=== PATIENT | female | born 1985 | race Caucasian/White ===

== ENCOUNTER 2024-03-31 17:56 | Outpatient (CLI) | payer BC, SELFPAY ==
[2024-04-02 21:44] LABS: HPV Source Cervical; HPV, High Risk by TMA Not Detected
== END 2024-03-31 17:57 | disposition home or self-care (01) ==
PROVIDERS: PCP Nurse Practitioner Family; Visit Provider Nurse Practitioner Family
DX: D50.9 Iron deficiency anemia, unspecified (principal); F41.9 Anxiety disorder, unspecified; T14.8XXA Other injury of unspecified body region, initial encounter; Z12.4 Encounter for screening for malignant neoplasm of cervix
CPT/HCPCS: 85025; 87624; 87625; 88141; 88142

== ENCOUNTER 2024-06-08 13:48 | Outpatient (CLI) | payer BC, SELFPAY ==
--- NOTE | 2024-06-08 14:00 | CRLHL7_ITS ---
For Patients: As a result of the Century Cures Act, medical imaging exams and procedure reports are released immediately into your electronic medical record. You may view this report before your referring provider. If you have questions, please contact your health care provider. Indication: Iron-deficiency anemia. Technique: Grayscale ultrasound of the pelvis was performed. Limited color Doppler was utilized. Transabdominal and transvaginal technique was performed. Comparison: None. Findings: Uterus: The uterus is normal in size, shape and echotexture. It measures 8.4 x 5.1 x 6.1 cm. No intramural masses identified. Endometrium: The endometrial stripe is homogeneous and measures 14 mm in thickness. Right ovary: The right ovary has a normal appearance containing a few tiny follicles. It measures 3.9 x 1.1 x 1.4 cm. Color Doppler blood flow to the right ovary is documented. Left ovary: The left ovary has a normal appearance containing a few tiny follicles. It measures 3.9 x 1.2 x 1.6 cm. Color Doppler blood flow to the left ovary is documented. Cul-de-sac: There is trace free fluid in the posterior cul-de-sac. Impression: No acute abnormality. Dictated by Rupert Avendaño MD @ 06/09/2024 9:57:57 AM (Electronically Signed)
--- NOTE | 2024-06-08 15:00 | CRLHL7_ITS ---
For Patients: As a result of the Century Cures Act, medical imaging exams and procedure reports are released immediately into your electronic medical record. You may view this report before your referring provider. If you have questions, please contact your health care provider. BILATERAL SCREENING MAMMOGRAM WITH COMPUTER-AIDED DETECTION AND TOMOSYNTHESIS TECHNIQUE: CC and MLO views were obtained. These mammographic images have been obtained using full-field digital technique. These mammographic images were interpreted with the benefit of computer-aided detection. Breast Tomosynthesis was used in this interpretation. COMPARISON FILM: Baseline. FINDINGS: The breasts are heterogeneously dense, which may obscure small masses IMPRESSION: There is no radiographic evidence for malignancy. ASSESSMENT: BI-RADS Category 1: Negative RECOMMENDATION: Routine screening mammogram in 1 year. A lay language report of this examination will be provided to the patient. Ramesh Pak M.D. Diagnostic Radiologist [email or web address] / bM/Dictated by: Ramesh Pak MD @ 06/11/2024 9:44:00 AM (Electronically Signed)
== END 2024-06-08 13:49 | disposition home or self-care (01) ==
LOC: US 13:48
PROVIDERS: PCP Nurse Practitioner Family; Visit Provider Nurse Practitioner Family
DX: Z12.31 Encounter for screening mammogram for malignant neoplasm of breast (principal); R92.333 Mammographic heterogeneous density, bilateral breasts; Z80.3 Family history of malignant neoplasm of breast; D50.9 Iron deficiency anemia, unspecified; N92.0 Excessive and frequent menstruation with regular cycle
CPT/HCPCS: 76830; 76856; 77063; 77067

== ENCOUNTER 2024-06-23 18:38 | Outpatient (CLI) | payer BC, SELFPAY | END 2024-06-23 18:39 | disposition home or self-care (01) | LOC: NFLDREF 18:39 | PROVIDERS: PCP Nurse Practitioner Family; Visit Provider Registered Nurse | DX: N92.0 Excessive and frequent menstruation with regular cycle (principal) | CPT/HCPCS: 84443 ==

== ENCOUNTER 2025-04-27 18:18 | Outpatient (CLI) | payer BC, SELFPAY | END 2025-04-27 18:19 | disposition home or self-care (01) | LOC: KYNREF 18:18 | PROVIDERS: PCP Nurse Practitioner Family; Visit Provider Nurse Practitioner Family | DX: D50.9 Iron deficiency anemia, unspecified (principal) | CPT/HCPCS: 85025 ==